=== PATIENT | female | born 1950 | race Caucasian/White ===

== ENCOUNTER → 2016-10-29 | Outpatient (CLI) | payer MEDICARE ==
--- NOTE | 2016-10-29 23:45 | WWHP ---
DATE OF DICTATION: 10/29/2016 CHIEF COMPLAINT: The patient is here for her routine gynecologic exam. HISTORY OF PRESENT ILLNESS: This is a 66-year-old with an LMP of 1999. The patient is without gynecologic complaints. She is here to establish with this office. She denies any postmenopausal bleeding. PAST MEDICAL HISTORY: 1. CVA with intracranial bleed in 2014. 2. Restless leg syndrome. 3. Eczema. 4. History of diverticular disease. Dr. Lancaster is her primary care physician. MEDICATIONS: 1. Klonopin 1 mg daily. 2. Pramipexole 1.5 mg daily. 3. Dihydrochloride cream as directed. ALLERGIES: NO KNOWN DRUG ALLERGIES. PAST SURGICAL HISTORY: 1. Appendectomy in 1972. 2. Tonsillectomy in 1961. 3. Tubal ligation in 1971. 4. 18 inches of intestines removed in 1989. 5. Colonoscopy in 2011. She has had approximately 7 in her lifetime. PAST OB HISTORY: Two vaginal deliveries. PAST CUSTODY OFFICER HISTORY: She has been menopausal since 1999 and has no history of STDs. SOCIAL HISTORY: She denies tobacco and drug use and has about 5 alcoholic drinks per year. She has been since 1994. 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 FAMILY HISTORY: Sister had colon cancer. Mother, aunt and grandmother had heart attacks. Grandmother had diabetes. REVIEW OF SYSTEMS: She thinks she has gained about 10 pounds over the winter. She denies respiratory, cardiac or GI problems. She denies maltreatment or falling and also denies any significant problems with urinary leakage. PHYSICAL EXAM: Blood pressure 138/76. Height 5 feet 6 inches. Weight 137 pounds. Temperature 96.1. Pulse 61. This is a well-developed, well-nourished white female who is alert and oriented x3, in no acute distress. HEENT is within normal limits. NECK: Supple without mass or thyromegaly. CHEST AND LUNGS: Clear to auscultation. HEART: Regular rate and rhythm. Breasts are without mass or discharge. Axillary exam is negative for adenopathy. BACK: Negative for CVA tenderness. ABDOMEN: Soft, nontender, without palpable masses. PELVIC EXAM: External genitalia reveal moderate atrophy without lesions. Cervix and vagina reveal mild to moderate atrophy without lesions. The cervix is somewhat stenotic, consistent with atrophy. There is no evidence of prolapse. The uterus is mid position, nongravid size and nontender. There are no palpable adnexal masses or tenderness. Rectovaginal exam is negative for mass or tenderness and is negative for occult blood. EXTREMITIES: Nontender. IMPRESSION: 1. A 66-year-old menopausal female with normal gynecologic exam. 2. History of osteopenia. PLAN: 1. Pap smear was performed. 2. Self breast examination was discussed. 3. Mammogram will be due in one month, and a slip was given to the patient for this. 4. Osteoporosis prevention was discussed, and I have recommended that she repeat her bone density testing in about one year. 5. She did receive a flu shot this past fall. 6. She will return in one year.
== END | disposition home or self-care (01) ==
LOC: WWCWWP 13:45
PROVIDERS: ATTEND Obstetrics & Gynecology

== ENCOUNTER → 2016-11-11 | Outpatient (CLI) | payer MEDICARE ==
--- NOTE | 2016-11-12 10:33 | MM ---
Reason for exam: screening (asymptomatic). Last mammogram was performed 1 year ago. History: Patient is postmenopausal. Right U/S Cancelled VAD Biopsy of both breasts, August 13, 2012. Benign cyst aspiration of the left breast. Benign excisional biopsy of the right breast. Took hormonal contraceptives for 2 years beginning at age 19. Took estrogen for 2 months. Took progesterone for 2 months. Physical Findings: A clinical breast exam by your physician is recommended on an annual basis and results should be correlated with mammographic findings. MG 3D Screening Mammo W/Cad Bilateral CC and MLO view(s) were taken. Prior study comparison: February 09, 2016, left breast US breast LT. November 09, 2015, bilateral MG 3d screening mammo w/cad. February 27, 2015, left breast MG diagnostic mammo LT w CAD. There are scattered fibroglandular densities. There is chronic nodularity in the left breast. There is no discrete abnormality. ASSESSMENT: Benign, BI-RAD 2 RECOMMENDATION: Routine screening mammogram of both breasts in 1 year.
== END ==
LOC: RADMAMWWP 07:38
PROVIDERS: ATTEND Obstetrics & Gynecology
DX: Z12.31 Encounter for screening mammogram for malignant neoplasm of breast (principal)
CPT/HCPCS: 77063; G0202

== ENCOUNTER 2017-12-01 07:40 | Day surgery (SDC) | payer MEDICARE ==
[2017-11-28 11:31] VITALS: BMI 20.6
[~2017-12-01 07:40] MED LIST: LACTATED RINGERS 1,000 ML IV SCH
[2017-12-01 08:21] VITALS: RESP 16; TEMP 98.2
[2017-12-01] MEDS ORDERED: LIDOCAINE 1% 20 ML VIAL (10MG/ML) FOR IV START INTRADERMA ONE (08:21)
[2017-12-01] MEDS ORDERED: PROPOFOL 10 MG/ML 20 ML VIAL IV ONE (08:44)
[2017-12-01] MEDS ORDERED: LIDOCAINE 1% INJ 10MG/ML (20 ML MDV) ONE (08:44)
--- NOTE | 2017-12-01 08:54 | P.GSHP ---
History of Present Illness H&P Date: 12/01/17 Chief Complaint: Colon cancer screening Patient here today for colonoscopy. She underwent a sigmoid resection 20 years ago or so. She has a family history of colon cancer in her sister. She has no bowel related complaints. Past Medical History Additional Past Medical History / Comment(s): cerebral hemorrhage December 2014,hx perforated diverticulitis History of Any Multi-Drug Resistant Organisms: None Reported Past Surgical History: Appendectomy, Bowel Resection, Tonsillectomy, Tubal Ligation Additional Past Surgical History / Comment(s): 5 coils inserted to stop cerebral hemorrhage Past Anesthesia/Blood Transfusion Reactions: No Reported Reaction Smoking Status: Never smoker - Past Family History Mother Additional Family Medical History / Comment(s): heart problems Sister(s) Family Medical History: Cancer, Diabetes Mellitus Additional Family Medical History / Comment(s): colon CA Medications and Allergies Home Medications Medication Instructions Recorded Confirmed Type Pramipexole Di-HCl [Pramipexole 1.5 mg PO HS 12/12/14 11/28/17 History Dihydrochloride] clonazePAM [Clonazepam] 1 mg PO HS 12/12/14 11/28/17 History Ascorbic Acid [Vitamin C] 500 mg PO DAILY 11/28/17 11/28/17 History Fish Oil/Dha/Epa [Fish Oil 1,200 1 each PO DAILY 11/28/17 11/28/17 History mg Fish Oil] Vitamin B Complex 1 each PO DAILY 11/28/17 11/28/17 History Allergies Allergy/AdvReac Type Severity Reaction Status Date / Time No Known Allergies Allergy Verified 12/01/17 07:57 Surgical - Exam Vital Signs Temp Pulse Resp BP Pulse Ox 98.2 F 56 L 16 120/62 99 12/01/17 08:20 12/01/17 08:20 12/01/17 08:20 12/01/17 08:20 12/01/17 08:20 Physical exam: General: Well-developed, well-nourished HEENT: Normocephalic, sclerae nonicteric Abdomen: Nontender, nondistended Extremities: No edema Neuro: Alert and oriented Assessment and Plan (1) Colon cancer screening Narrative/Plan: Will proceed with colonoscopy at this time. Current Visit: Yes Status: Acute Code(s): Z12.11 - ENCOUNTER FOR SCREENING FOR MALIGNANT NEOPLASM OF COLON SNOMED Code(s): 716349529
--- NOTE | 2017-12-01 09:06 | P.PCN ---
Date of Procedure: 12/01/17 Procedure(s) Performed: PREOPERATIVE DIAGNOSIS: Colon cancer screening POSTOPERATIVE DIAGNOSIS: Ascending colon polyp, pandiverticulosis PROCEDURE: Colonoscopy with snare polypectomy ANESTHESIA: MAC SURGEON: Serafin Blackwell M.D. SPECIMENS: Ascending colon polyp ENDOSCOPIC PROCEDURE: The patient was placed on the endoscopy table in the left decubitus position. The Olympus colonoscope was inserted into the anus and passed under direct visualization to the base of the cecum. The appendiceal orifice was visualized. From that point the scope was slowly withdrawn inspecting all surfaces carefully. There were no neoplastic inflammatory or polypoid lesions throughout the cecum. In the ascending colon a small polyp was identified and removed using the snare with cautery technique. The remainder of the ascending, transverse, descending, sigmoid and rectum appeared normal. There was moderate diverticulosis noted growth the colon. Digital rectal examination was normal. The patient was taken to the recovery room in stable condition per anesthesia guidelines. RECOMMENDATIONS: Await biopsy results. Follow-up colonoscopy 5 years.
[2017-12-01 09:47] VITALS: BP 147/69; PULSE 57
== END 2017-12-01 10:01 | disposition home or self-care (01) ==
LOC: ORWHC2ENDO 07:40
PROVIDERS: ATTEND Surgery
DX: Z12.11 Encounter for screening for malignant neoplasm of colon (principal); K63.5 Polyp of colon; Z80.0 Family history of malignant neoplasm of digestive organs; Z87.19 Personal history of other diseases of the digestive system; Z86.69 Personal history of other diseases of the nervous system and sense organs; Z79.899 Other long term (current) drug therapy
CPT/HCPCS: 88305; 45385; J2001; J2704

== ENCOUNTER → 2018-01-28 | Outpatient (CLI) | payer MEDICARE ==
[2018-01-28 12:17] VITALS: BP 137/73; PULSE 66; TEMP 96.1; BMI 20.3
--- NOTE | 2018-01-28 12:45 | P.HPOB ---
History of Present Illness H&P Date: 01/28/18 Chief Complaint: The patient is here for her routine gynecologic exam and mammogram. This is a 67-year-old with an LMP of 1999. The patient is without gynecologic complaints and denies any postmenopausal bleeding. Review of Systems The patient has lost 11 pounds over the last year. She denies respiratory, cardiac, or G.I. problems. She denies maltreatment or falling. : she denies any significant problems with urinary leakage. Past Medical History Past Medical History: CVA/TIA (2015 intracranial bleed), Skin Disorder (Eczema) Additional Past Medical History / Comment(s): Diverticular disease and restless leg syndrome. 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 History of Any Multi-Drug Resistant Organisms: None Reported Past Surgical History: Appendectomy, Bowel Resection, Tonsillectomy, Tubal Ligation Additional Past Surgical History / Comment(s): Colonoscopy 2016 and this was her 8th one. Past Psychological History: No Psychological Hx Reported Smoking Status: Never smoker Past Alcohol Use History: Rare (15 per year) Past Drug Use History: None Reported Additional History: She has been since 1994. 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 - Past Family History Sister(s) Family Medical History: Cancer (Colon cancer) Mother Family Medical History: Myocardial Infarction (MT) Medications and Allergies Home Medications Medication Instructions Recorded Confirmed Type Pramipexole Di-HCl [Pramipexole 1.5 mg PO HS 12/12/14 11/28/17 History Dihydrochloride] clonazePAM [Clonazepam] 1 mg PO HS 12/12/14 01/28/18 History Ascorbic Acid [Vitamin C] 500 mg PO DAILY 11/28/17 01/28/18 History Fish Oil/Dha/Epa [Fish Oil 1,200 1 each PO DAILY 11/28/17 01/28/18 History mg Fish Oil] Vitamin B Complex 1 each PO DAILY 11/28/17 01/28/18 History Allergies Allergy/AdvReac Type Severity Reaction Status Date / Time No Known Allergies Allergy Verified 01/28/18 12:10 Exam - Vital Signs Vital signs: Vital Signs Temp Pulse BP 01/28/18 12:10 96.1 F L 66 137/73 Intake and Output 01/27/18 01/28/1818 22:59 06:59 14:59 Other: Weight 57.153 kg Height 5'6", BMI 20.3 This is a well-developed well-nourished white female who is alert and oriented times 3 in no acute distress. HEENT: Within normal limits. NECK: Supple without mass or thyromegaly. CHEST AND LUNGS: Clear to auscultation. HEART: Regular rate and rhythm. BREASTS: Are without mass or discharge. AXILLARY EXAM: Negative for adenopathy. BACK: Negative for CVA tenderness. ABDOMEN: Soft and nontender. There is a soft right upper quadrant mass adjacent to the lowest rib at the lateral aspect. This measures approximately 9 x 9 cm and is consistent with a lipoma. This is soft and nontender. The patient states she has had this for many years and is unchanged. PELVIC EXAM: Normal external genitalia with mild to moderate atrophy. Cervix and vagina appear normal with moderate atrophy. There is no unusual discharge. There is no evidence of prolapse. The uterus is midposition, nongravid size and nontender. There are no palpable adnexal masses or tenderness. RECTAL EXAM: rectovaginal exam is negative for mass or tenderness and is negative for occult blood. EXTREMITIES: Nontender. IMPRESSION: 1. 67-year-old menopausal female with normal gynecologic exam. 2. History of osteopenia. 3. 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 PLAN: 1. Pap smear was deferred since she had a normal one last year. 2. Self breast awareness was discussed. 3. Screening mammogram will be done today. 4. Osteoporosis prevention was discussed. Bone density screening will be done today. 5. She does not get flu shots in the fall and does not want to get these. 6. She will return in one year.
--- NOTE | 2018-01-28 13:48 | BD ---
EXAMINATION TYPE: Axial Bone Density DATE OF EXAM: 01/28/2018 COMPARISON: NONE CLINICAL HISTORY: Z78.0 POST MENOPAUSAL Height: 66 Weight: 123.9 FRAX RISK QUESTIONS: Alcohol (3 or more units per day): no Family History (Parent hip fracture): no Glucocorticoids (More than 3mos): no (Ex: prednisone, prednisolone, methylprednisolone, dexamethasone, and hydrocortisone). History of Fracture in Adulthood: no Secondary Osteoporosis: 1. Type 1 Diabetes: no 2. Hyperthyroidism: no 3. Menopause before 45: no 4. Malnutrition: no 5. Chronic liver disease: no Rheumatoid Arthritis: no Current Tobacco Use: no RISK FACTORS HISTORY OF: Family History of Osteoporosis: no Active: yes Diet low in dairy products/other sources of calcium: yes Postmenopausal woman: age 50 Lost more than 2 inches in height since high school: no Adrenal Insufficiency: no MEDICATIONS: klonopin, pramipexole Additional History: EXAM MEASUREMENTS: Bone mineral densitometry was performed using the [employer] System. Bone mineral density as measured about the Lumbar spine is: ----- L1-L4(G/cm2): 1.103 T Score Values are as follows: ----- L2: -1.4 ----- L3: -1.2 ----- L4: 0.6 ----- L1-L4: -0.6 Bone mineral density has: decreased -0.6 % since study of: 11.09.2015 Bone mineral density about the R hip (g/cm2): 0.710 Bone mineral density about the L hip (g/cm2): 0.749 T Score values are as follows: -----R Neck: -2.4 -----L Neck: -2.1 -----R Total: -2.4 -----L Total: -2.3 Bone mineral density has: decreased -4.6 % since study of: 11.09.2015 IMPRESSION: 1. Osteopenia with near osteoporosis about the bilateral femora NOTE: T-SCORE=SD OF THE YOUNG ADULT MEAN.
--- NOTE | 2018-01-29 09:09 | MM ---
Reason for exam: screening (asymptomatic). Last mammogram was performed 1 year and 3 months ago. History: Patient is postmenopausal. Right U/S Cancelled VAD Biopsy of both breasts, August 13, 2012. Benign cyst aspiration of the left breast. Benign excisional biopsy of the right breast. Took hormonal contraceptives for 2 years beginning at age 19. Took estrogen for 2 months. Took progesterone for 2 months. Physical Findings: A clinical breast exam by your physician is recommended on an annual basis and results should be correlated with mammographic findings. MG 3D Screening Mammo W/Cad Bilateral CC and MLO view(s) were taken. Prior study comparison: November 11, 2016, bilateral MG 3d screening mammo w/cad. November 09, 2015, bilateral MG 3d screening mammo w/cad. The breast tissue is heterogeneously dense. This may lower the sensitivity of mammography. There is a stable left breast mass back to 2016. No suspicious abnormality. ASSESSMENT: Benign, BI-RAD 2 RECOMMENDATION: Routine screening mammogram of both breasts in 1 year.
== END | disposition home or self-care (01) ==
LOC: WWCWWP 11:12
PROVIDERS: ATTEND Obstetrics & Gynecology
DX: Z12.31 Encounter for screening mammogram for malignant neoplasm of breast (principal); M85.852 Other specified disorders of bone density and structure, left thigh; M85.851 Other specified disorders of bone density and structure, right thigh; Z78.0 Asymptomatic menopausal state
CPT/HCPCS: 77063; 77067; 77080

== ENCOUNTER → 2019-06-01 | Outpatient (CLI) | payer MEDICARE ==
[2019-06-01 14:42] VITALS: BP 151/78; PULSE 59; RESP 16; TEMP 98.4; BMI 20.3
--- NOTE | 2019-06-01 15:20 | P.HPOB ---
History of Present Illness H&P Date: 06/01/19 Chief Complaint: The patient is here for her routine gynecologic exam and ma mmogram. This is a 69-year-old G to P2 with an LMP of 1999. The patient is without gynecologic complaints and denies any postmenopausal bleeding. Review of Systems Weight has been stable. She denies respiratory, cardiac and G.I. problems. She denies maltreatment or problems with falling. : she denies any significant problems with urinary leakage. Past Medical History Past Medical History: CVA/TIA, Skin Disorder Additional Past Medical History / Comment(s): Intracranial bleed in 2014. Eczema. Diverticular disease and restless leg syndrome. 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 History of Any Multi-Drug Resistant Organisms: None Reported Past Surgical History: Appendectomy, Bowel Resection, Tonsillectomy, Tubal Ligation Additional Past Surgical History / Comment(s): Colonoscopy 2016 and this was her 8th one. Past Anesthesia/Blood Transfusion Reactions: No Reported Reaction Past Psychological History: No Psychological Hx Reported Smoking Status: Never smoker Past Alcohol Use History: Rare (One per month) Past Drug Use History: None Reported Additional History: She has been since 1994. 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 - Past Family History Mother Additional Family Medical History / Comment(s): heart problems Sister(s) Family Medical History: Cancer, Diabetes Mellitus Additional Family Medical History / Comment(s): colon CA Medications and Allergies Home Medications Medication Instructions Recorded Confirmed Type Calcium Carb/Magnesium Ox,Carb 1 tab PO DAILY 06/01/19 06/01/19 History [Otis-Mag 500-250 MG Chewable] Cholecalciferol [Vitamin D3 (25 20,000 unit PO DAILY 06/01/19 06/01/19 History Mcg = 1000 Iu)] Allergies Allergy/AdvReac Type Severity Reaction Status Date / Time No Known Allergies Allergy Verified 06/01/19 14:43 Exam Vital Signs Temp Pulse Resp BP Pulse Ox 06/01/19 14:39 98.4 F 59 L 16 151/78 96 Intake and Output 06/01/19 06/01/19 06/01/19 06:59 14:59 22:59 Other: Weight 57.153 kg Height 5'6", weight 126 pounds, BMI 20.3. This is a well-developed well-nourished white female who is alert and oriented times 3 in no acute distress. HEENT: Within normal limits. NECK: Supple without mass or thyromegaly. CHEST AND LUNGS: Clear to auscultation. HEART: Regular rate and rhythm. BREASTS: Are without mass or discharge. AXILLARY EXAM: Negative for adenopathy. BACK: Negative for CVA tenderness. ABDOMEN: Soft, nontender, without palpable masses. PELVIC EXAM: Normal external genitalia with moderate atrophy. Cervix and vagina appear normal with moderate atrophy. The cervix is stenotic secondary to atrophy and is fairly flush with the vaginal wall. There is no unusual discharge. There is no evidence of prolapse. The uterus is midposition, nongr avid size and nontender. There are no palpable adnexal masses or tenderness. RECTAL EXAM: rectaovaginal exam is negative for mass or tenderness and is negative for occult blood. EXTREMITIES: Nontender. IMPRESSION: 1. 69-year-old menopausal female with normal gynecologic exam. 2. History of osteopenia PLAN: 1. Pap smear was performed. 2. Self breast awareness was discussed with the patient. 3. Screening mammogram will be done today. 4. Osteoporosis prevention was discussed. I have stressed the importance of adequate calcium, vitamin D and regular exercise. Recommended amounts of c alcium and vitamin D were also discussed. I have recommended bone density testing in 2020. 5. I have recommended flu shots in the fall. She states she does not get them. I have asked her to reconsider this decision. 6. She was advised to return in one year for her annual well woman exam.
--- NOTE | 2019-06-03 09:56 | MM ---
Reason for exam: screening (asymptomatic). Last mammogram was performed 1 year and 4 months ago. History: Patient is postmenopausal. Right U/S Cancelled VAD Biopsy of both breasts, August 13, 2012. Benign cyst aspiration of the left breast. Benign excisional biopsy of the right breast. Took hormonal contraceptives for 2 years beginning at age 19. Took estrogen for 2 months. Took progesterone for 2 months. Physical Findings: A clinical breast exam by your physician is recommended on an annual basis and results should be correlated with mammographic findings. MG 3D Screening Mammo W/Cad Bilateral CC and MLO view(s) were taken. Prior study comparison: January 28, 2018, bilateral MG 3d screening mammo w/cad. November 11, 2016, bilateral MG 3d screening mammo w/cad. There are scattered fibroglandular densities. No significant changes when compared with prior studies. ASSESSMENT: Negative, BI-RAD 1 RECOMMENDATION: Routine screening mammogram of both breasts in 1 year.
== END ==
LOC: WWCWWP 14:30
PROVIDERS: ATTEND Obstetrics & Gynecology
DX: Z12.31 Encounter for screening mammogram for malignant neoplasm of breast (principal); Z78.0 Asymptomatic menopausal state
CPT/HCPCS: 77063; 77067

== ENCOUNTER → 2020-09-05 | Outpatient (CLI) | payer MEDICARE ==
[2020-09-05 08:12] VITALS: BP 133/87; PULSE 65; RESP 18; TEMP 98
--- NOTE | 2020-09-05 08:37 | P.HPOB ---
History of Present Illness H&P Date: 09/05/20 Chief Complaint: The patient is here for her routine gynecologic exam and ma mmogram. This is a 78-year-old with an LMP of 2000. The patient is without gynecologic complaints. Review of Systems The patient has gained 12 pounds over the last year. She denies respiratory, cardiac, or G.I. problems.. She denies respiratory, cardiac and G.I. problems. She denies maltreatment or problems with falling. : She experiences occasional urinary leakage with coughing sneezing or lifting. Past Medical History Past Medical History: CVA/TIA, Skin Disorder Additional Past Medical History / Comment(s): Intracranial bleed in 2014. Eczema. Diverticular disease and restless leg syndrome. 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 History of Any Multi-Drug Resistant Organisms: None Reported Past Surgical History: Appendectomy, Bowel Resection, Tonsillectomy, Tubal Ligation Additional Past Surgical History / Comment(s): Colonoscopy 2017(next after 5yr). Past Anesthesia/Blood Transfusion Reactions: No Reported Reaction Past Psychological History: No Psychological Hx Reported Smoking Status: Never smoker Past Alcohol Use History: Rare (10 per year) Past Drug Use History: None Reported Additional History: She has been since 1994 and is not sexually active. She works at [employer] a [employer]. - Past Family History Mother Additional Family Medical History / Comment(s): heart problems Sister(s) Family Medical History: Cancer, Diabetes Mellitus Additional Family Medical History / Comment(s): colon CA Medications and Allergies Home Medications Medication Instructions Recorded Confirmed Type Calcium Carb/Magnesium Ox,Carb 1 tab PO DAILY 06/01/19 09/05/20 History [Otis-Mag 500-250 MG Chewable] Cholecalciferol [Vitamin D3 (25 20,000 unit PO DAILY 06/01/19 09/05/20 History Mcg = 1000 Iu)] Ascorbic Acid [Vitamin C] 500 mg PO DAILY 09/05/20 09/05/20 History Allergies Allergy/AdvReac Type Severity Reaction Status Date / Time No Known Allergies Allergy Verified 09/05/20 08:05 Exam Vital Signs Temp Pulse Resp BP Pulse Ox 09/05/20 08:06 98.0 F 65 18 133/87 97 Intake and Output 09/04/20 09/05/20 09/05/20 22:59 06:59 14:59 Other: Weight 62.596 kg Height 5 feet 5 inches, weight 138 pounds, BMI 23.0. This is a well-developed well-nourished white female who is alert and oriented times 3 in no acute distress. HEENT: Within normal limits. NECK: Supple without mass or thyromegaly. CHEST AND LUNGS: Clear to auscultation. HEART: Regular rate and rhythm. BREASTS: Are without mass or discharge. AXILLARY EXAM: Negative for adenopathy. BACK: Negative for CVA tenderness. ABDOMEN: Soft, nontender, without palpable masses. PELVIC EXAM: Normal external genitalia with mild to moderate atrophy. Cervix and vagina appear normal mild to moderate atrophy. There is no unusual discharge. There is no evidence of prolapse. The uterus is midposition, nongravid size and nontender. There are no palpable adnexal masses or tenderness. RECTAL EXAM: rectovaginal exam is negative for mass or tenderness and is negativ e for occult blood. EXTREMITIES: Nontender. IMPRESSION: 1. 70-year-old menopausal female with normal gynecologic exam. 2. History of osteopenia PLAN: 1. Pap smear was deferred since she had a normal one on 06/01/2019. We will continue cervical screening until we have had 3 negative consecutive Pap smears. 2. Self breast awareness was discussed with the patient. 3. Screening mammogram will be done today. 4. Osteoporosis prevention was discussed. I have stressed the importance of adequate calcium, vitamin D and regular exercise. Recommended amounts of calcium and vitamin D were also discussed. Bone density testing will be done today. 5. She states she does not get flu shots in the fall. I have recommended that she reconsider this and I have also recommended that she look into getting the covert vaccination when available. 6. The patient was advised to return in 1-2 years for her well woman examination.
--- NOTE | 2020-09-05 16:38 | BD ---
EXAMINATION TYPE: Axial Bone Density DATE OF EXAM: 09/05/2020 COMPARISON: 01.28.2018 CLINICAL HISTORY: 70 YR OLD FEMALE.....ICD-10 CODE: Z8.0 POST MENOPAUSE Height: 68.8 Weight: 136 FRAX RISK QUESTIONS: History of Fracture in Adulthood: YES RISK FACTORS HISTORY OF: HX OF RECENT FOOT BREAK, AND FINGER FX > 50 YRS OLD Postmenopausal woman: YES IN LATE FORTIES Hyperparathyroidism: NO Adrenal Insufficiency: NO MEDICATIONS: Prednisone or other steroids: ONLY ONCE IN A WHILE WITH BRONCHITIS Additional Medications: VIT D AND CALCIUM Additional History: NOTHING TO NOTE HERE EXAM MEASUREMENTS: Bone mineral densitometry was performed using the Cuculus System. Bone mineral density as measured about the Lumbar spine is: ----- L1-L4(G/cm2): 1.143 T Score Values are as follows: ----- L1: -0.8 ----- L2: -0.6 ----- L3: -0.3 ----- L4: 0.5 ----- L1-L4: -0.3 Bone mineral density has: Increased 4.4% SINCE THE STUDY OF 01.28.2018 Bone mineral density about the R hip (g/cm2): 0.732 Bone mineral density about the L hip (g/cm2): 0.746 T Score values are as follows: -----R Neck: -2.3 -----L Neck: -1.6 -----R Total: -2.2 -----L Total: -1.6 Bone mineral density has: Increased 4.4% SINCE STUDY OF: 01.28.2018 FRAX%s: THERE IS A 20.3% CHANCE FOR A MAJOR OSTEOPOROTIC FX AND A 4.8% FOR HIP.....PROBABILITY FOR FX IN 10 YRS TIME IMPRESSION: Osteopenia (T Score between -2.5 and -1). There is slightly increased risk of fracture and the patient may be considered for treatment. Re-Screen 2-5 years. NOTE: T-SCORE=SD OF THE YOUNG ADULT MEAN.
--- NOTE | 2020-09-06 14:39 | MM ---
Reason for exam: screening (asymptomatic). Last mammogram was performed 1 year and 3 months ago. History: Patient is postmenopausal. Right U/S Cancelled VAD Biopsy of both breasts, August 13, 2012. Benign cyst aspiration of the left breast. Benign excisional biopsy of the right breast. Took hormonal contraceptives for 2 years beginning at age 19. Took estrogen for 2 months. Took progesterone for 2 months. Physical Findings: A clinical breast exam by your physician is recommended on an annual basis and results should be correlated with mammographic findings. MG 3D Screening Mammo W/Cad Bilateral CC and MLO view(s) were taken. Prior study comparison: June 01, 2019, bilateral MG 3d screening mammo w/cad. January 28, 2018, bilateral MG 3d screening mammo w/cad. There are scattered fibroglandular densities. No significant changes when compared with prior studies. ASSESSMENT: Benign, BI-RAD 2 RECOMMENDATION: Routine screening mammogram of both breasts in 1 year.
== END | disposition home or self-care (01) ==
LOC: WWCWWP 07:56
PROVIDERS: ATTEND Obstetrics & Gynecology
DX: Z12.31 Encounter for screening mammogram for malignant neoplasm of breast (principal); M85.80 Other specified disorders of bone density and structure, unspecified site; Z78.0 Asymptomatic menopausal state
CPT/HCPCS: 77063; 77067; 77080

== ENCOUNTER → 2022-04-24 | Outpatient (CLI) | payer MEDICARE ==
[2022-04-24 07:58] VITALS: BP 143/66; PULSE 55; RESP 17; TEMP 98.7
--- NOTE | 2022-04-24 08:30 | P.HPOB ---
History of Present Illness H&P Date: 04/24/22 Chief Complaint: The patient is here for her routine gynecologic exam and ma mmogram. This is a 71-year-old with an LMP of 1999. The patient is without gynecologic complaints and denies any postmenopausal bleeding. Review of Systems The patient has lost 5 pounds over the last year. She denies respiratory, cardiac, or G.I. problems. Past Medical History Past Medical History: CVA/TIA, Skin Disorder Additional Past Medical History / Comment(s): Intracranial bleed in 2014. Eczema. Diverticular disease and restless leg syndrome. [employer] history: she has no history of STDs. History of Any Multi-Drug Resistant Organisms: None Reported Past Surgical History: Appendectomy, Bowel Resection, Tonsillectomy, Tubal Ligation Additional Past Surgical History / Comment(s): Colonoscopy 2017(next after 5yr). Past Anesthesia/Blood Transfusion Reactions: No Reported Reaction Past Psychological History: No Psychological Hx Reported Smoking Status: Never smoker Past Alcohol Use History: Rare (1 month) Past Drug Use History: None Reported Additional History: She has been since 1994 and is not sexually active. She is the director at [employer], as shared tubal organization. - Past Family History Mother Additional Family Medical History / Comment(s): heart problems Sister(s) Family Medical History: Cancer, Diabetes Mellitus Additional Family Medical History / Comment(s): colon CA Medications and Allergies Home Medications Medication Instructions Recorded Confirmed Type Calcium Carb/Magnesium Ox,Carb 1 tab PO DAILY 06/01/19 04/24/22 History [Otis-Mag 500-250 MG Chewable] Cholecalciferol [Vitamin D3 (25 20,000 unit PO DAILY 06/01/19 04/24/22 History Mcg = 1000 Iu)] Ascorbic Acid [Vitamin C] 500 mg PO DAILY 09/05/20 04/24/22 History Allergies Allergy/AdvReac Type Severity Reaction Status Date / Time No Known Allergies Allergy Verified 04/24/22 07:52 Exam Vital Signs Temp Pulse Resp BP Pulse Ox 04/24/22 07:54 98.7 F 55 L 17 143/66 97 Intake and Output 04/23/22 04/24/22 04/24/22 22:59 06:59 14:59 Other: Weight 60.328 kg Height 5 feet 5 inches, weight 133 pounds, BMI 22.1. This is a well-developed well-nourished white female who is alert and oriented times 3 in no acute distress. HEENT: Within normal limits. NECK: Supple without mass or thyromegaly. CHEST AND LUNGS: Clear to auscultation. HEART: Regular rate and rhythm. BREASTS: Are without mass or discharge. AXILLARY EXAM: Negative for adenopathy. BACK: Negative for CVA tenderness. ABDOMEN: Soft, nontender, without palpable masses. PELVIC EXAM: Normal external genitalia with moderate atrophy. Cervix and vagina appear normal with moderate atrophy. The cervix is somewhat stenotic secondary to atrophy. There is no unusual discharge. There is no evidence of prolapse. The uterus is midposition, nongravid size and nontender. There are no palpable adnexal masses or tenderness. RECTAL EXAM: Rectovaginal exam is negative for mass or tenderness and is negative for occult blood. EXTREMITIES: Nontender. IMPRESSION: 1. 71-year-old menopausal female with normal gynecologic exam. 2. History of osteopenia. PLAN: 1. Pap smear was performed. If this one is negative, we will discontinue Pap smears. 2. Self breast awareness was discussed with the patient. We have also discussed symptoms associated with inflammatory breast cancer. 3. screening mammogram will be done today. 4. osteoporosis prevention was discussed. We will plan on repeating bone density testing next year. 5. she has completed her Covid vaccination series and did receive a booster. 6. She is due for her colonoscopy and will discuss this with her PCP. 7. She was advised to return in one year for her annual well woman exam.
--- NOTE | 2022-04-25 07:52 | MM ---
Reason for Exam: Screening (asymptomatic). Last mammogram was performed 1 year(s) and 8 month(s) ago. Patient History: Menarche at age 13. First Full-Term at age 17. Postmenopausal. Estrogen for 2 months until age 54. Progesterone for 2 months until age 54. Hormonal Contraceptives for 2 years from age 19 until age 21. Benign Cyst Aspiration on the left side. Benign Excisional Biopsy on the right side. 08/13/2012, Bilateral Right U/S Cancelled VAD Biopsy. Risk Values: Brenda 5 year model risk: 1.5%. NCI Lifetime model risk: 4.1%. Prior Study Comparison: 01/28/2018 Bilateral Screening Mammogram, [facility]. 06/01/2019 Bilateral Screening Mammogram, [facility]. 09/05/2020 Bilateral Screening Mammogram, [facility]. Tissue Density: The breast tissue is heterogeneously dense. This may lower the sensitivity of mammography. Findings: Analyzed By CAD. There is no suspicious group of microcalcifications or new suspicious mass in either breast. Stable chronic nodularity left breast. Overall Assessment: Benign, BI-RAD 2 Management: Screening Mammogram of both breasts in 1 year. A clinical breast exam by your physician is recommended on an annual basis and results should be correlated with mammographic findings. Electronically signed and approved by: Alfredo Putnam M.D. Radiologis
== END | disposition home or self-care (01) ==
LOC: WWCWWP 07:46
PROVIDERS: ATTEND Obstetrics & Gynecology
DX: Z12.31 Encounter for screening mammogram for malignant neoplasm of breast (principal); Z01.419 Encounter for gynecological examination (general) (routine) without abnormal findings; Z86.73 Personal history of transient ischemic attack (TIA), and cerebral infarction without residual deficits; Z78.0 Asymptomatic menopausal state; Z87.39 Personal history of other diseases of the musculoskeletal system and connective tissue
CPT/HCPCS: 77063; 77067

== ENCOUNTER → 2023-07-08 | Outpatient (CLI) | payer MEDICARE ==
[2023-07-08 19:14] LABS: Calcium 9.6 mg/dL (8.7-10.3)
--- NOTE | 2023-07-09 14:11 | P.PN ---
Progress Note - Text Progress Note Date: 07/09/23 OUTPATIENT FOLLOW-UP NOTE TEST(S)/RESULTS: Test results from 07/08/2023 include normal creatinine and normal serum calcium. METHOD OF NOTIFICATION: The patient was notified by phone on 07/09/2023. PATIENT COMMENTS: She is interested in starting alendronate for osteoporosis. DIAGNOSIS: Osteoporosis DISCUSSION: We have discussed the importance of taking the medication properly and the instructions were reviewed with the patient. She also states she has no upcoming jaw or dental procedures coming up and recently had a dental exam with x-rays. PLAN: Alendronate 70 mg by mouth every week. Electronic prescription will be sent to [facility] pharmacy. She was instructed to call if she has any questions or problems. We will repeat the bone density test in 2 years. We'll plan on keeping her on the medication for a total of 5 years, if she is tolerating the medication well.
== END | disposition home or self-care (01) ==
LOC: LABWHC1 15:35
PROVIDERS: ATTEND Obstetrics & Gynecology
DX: M81.0 Age-related osteoporosis without current pathological fracture (principal)
CPT/HCPCS: 36415; 82310; 82565

== ENCOUNTER → 2024-07-20 | Outpatient (CLI) | payer MEDICARE ==
[2024-07-20 09:28] VITALS: BP 135/80; PULSE 60; RESP 16; TEMP 98.3
--- NOTE | 2024-07-20 10:05 | P.HPOB ---
History of Present Illness H&P Date: 07/20/24 Chief Complaint: The patient is here for her routine gynecologic exam and ma mmogram. This is a 74-year-old G2, P2 with an LMP of 1999. The patient is without gynecologic complaints. Review of Systems The patient has gained 8 pounds over the last year. She denies respiratory, cardiac, or G.I. problems. Past Medical History Past Medical History: CVA/TIA, Skin Disorder Additional Past Medical History / Comment(s): Intracranial bleed in 2014. Eczema. Diverticular disease and restless leg syndrome. [employer] history: she has no history of STDs. History of Any Multi-Drug Resistant Organisms: None Reported Past Surgical History: Appendectomy, Bowel Resection, Tonsillectomy, Tubal Ligation Additional Past Surgical History / Comment(s): Colonoscopy 2023(next after 5yr). Past Anesthesia/Blood Transfusion Reactions: No Reported Reaction Past Psychological History: No Psychological Hx Reported Smoking Status: Never smoker Past Alcohol Use History: Occasional (0-2 drinks per week.) Past Drug Use History: None Reported Additional History: She has been since 1994 and is not sexually active. She is retired. Her has early dementia. - Past Family History Mother Additional Family Medical History / Comment(s): heart problems Sister(s) Family Medical History: Cancer, Diabetes Mellitus Additional Family Medical History / Comment(s): colon CA Medications and Allergies Home Medications Medication Instructions Recorded Confirmed Type Calcium Carb/Magnesium Ox,Carb 1 tab PO DAILY 06/01/19 07/20/24 History [Otis-Mag 500-250 MG Chewable] Cholecalciferol [Vitamin D3 (25 20,000 unit PO DAILY 06/01/19 07/20/24 History Mcg = 1000 Iu)] Ascorbic Acid [Vitamin C] 500 mg PO DAILY 09/05/20 07/20/24 History Alendronate Sodium 70 mg PO WEEKLY #12 tab 07/09/23 07/20/24 Rx Allergies Allergy/AdvReac Type Severity Reaction Status Date / Time No Known Allergies Allergy Verified 07/20/24 09:24 Exam Vital Signs Temp Pulse Resp BP Pulse Ox 07/20/24 09:26 98.3 F 60 16 135/80 97 Intake and Output 07/19/24 07/20/24 07/20/24 22:59 06:59 14:59 Other: Weight 68.946 kg Height 5 feet 5 inches, weight 152 pounds, BMI 25.3. This is a well-developed well-nourished white female who is alert and oriented times 3 in no acute distress. HEENT: Within normal limits. NECK: Supple without mass or thyromegaly. CHEST AND LUNGS: Clear to auscultation. HEART: Regular rate and rhythm. BREASTS: Are without mass or discharge. AXILLARY EXAM: Negative for adenopathy. BACK: Negative for CVA tenderness. ABDOMEN: Soft, nontender, without palpable masses. PELVIC EXAM: Normal external genitalia with mild atrophy. Cervix and vagina appear normal mild atrophy. There is no unusual discharge. There is no evidence of prolapse. The uterus is midposition, nongravid size and nontender. There are no palpable adnexal masses or tenderness. RECTAL EXAM: Rectovaginal exam is negative for mass or tenderness and is negative for occult blood. EXTREMITIES: Nontender. IMPRESSION: 1. 74-year-old menopausal female with normal gynecologic exam. 2. History of osteoporosis on Fosamax since 07/09/2023. PLAN: 1. Pap smears have been discontinued. 2. Self breast awareness was discussed with the patient. We have also discussed symptoms associated with inflammatory breast cancer. 3. Screening mammogram will be done today. 4. Osteoporosis prevention was discussed. I have stressed the importance of adequate calcium, vitamin D and regular exercise. Recommended amounts of calcium and vitamin D were also discussed. We will continue Fosamax. The electronic prescription will be sent to [facility] pharmacy. We will plan on repeating the bone density test next year. 5. She was advised to return in one year for her annual well woman exam.
== END ==
LOC: WWCWWP 09:14
PROVIDERS: ATTEND Obstetrics & Gynecology
DX: Z12.31 Encounter for screening mammogram for malignant neoplasm of breast (principal); M81.0 Age-related osteoporosis without current pathological fracture; Z78.0 Asymptomatic menopausal state
CPT/HCPCS: 77063; 77067